=== PATIENT | male | born 1985 ===

== ENCOUNTER 2018-05-17 14:19 | Emergency (ER) | payer OTHER ==
[~2018-05-17] VITALS: Ht 182.9 cm; Wt 97.7 kg
[2018-05-17] MEDS ORDERED: PredniSONE 20 MG TABLET PO ONE (16:15)
[2018-05-17] MEDS ORDERED: HYDROCORTISONE 1% 30 GM OINTMENT TP ONE (16:15)
[2018-05-17] MEDS ORDERED: DiphenhydrAMINE HCL 25 MG CAPSULE PO ONE (16:15)
[2018-05-17 17:16] VITALS: BP 118/71
== END 2018-05-17 17:19 | disposition home or self-care (01) ==
LOC: EMS 14:21
DX: L25.9 Unspecified contact dermatitis, unspecified cause (principal); F17.210 Nicotine dependence, cigarettes, uncomplicated; F15.90 Other stimulant use, unspecified, uncomplicated
CPT/HCPCS: 99284; 99406; J7512